=== PATIENT | female | born 1960 | race Caucasian/White ===

== ENCOUNTER 2016-09-30 16:50 | Inpatient (IN) | payer OTHER ==
[2016-09-30] MEDS ORDERED: ATIVAN1 M2 PO (18:39)
[2016-09-30] MEDS ORDERED: DEXAMETHASONE2 M1 PO (18:40)
[2016-09-30] MEDS ORDERED: LEXAPRO10 M2 PO (18:49)
[2016-09-30] MEDS ORDERED: NEURONTIN600 M1 PO (18:51)
[2016-09-30] MEDS ORDERED: GLYCERIN1 EAC1 PR (18:52)
[2016-09-30] MEDS ORDERED: IBUPROFEN800 M1 PO (18:53)
[2016-09-30] MEDS ORDERED: METHADOSE10 MG/1 ML PO (18:54)
[2016-09-30] MEDS ORDERED: OMEPRAZOLE20 M3 PO (18:56)
[2016-09-30] MEDS ORDERED: NAMENDA10 M1 PO (18:56)
[2016-09-30] MEDS ORDERED: OXYCODONE PO (19:00)
[2016-09-30] MEDS ORDERED: SENEXON8.6 M1 PO (19:02)
[2016-09-30] MEDS ORDERED: VITAMIN B17 PO (19:04)
[2016-10-03] MEDS ORDERED: OXYCODONE HCL5 M1 PO ×2 (16:36→16:37)
[2016-10-03] MEDS ORDERED: ATIVAN0.5 M1 PO (16:39)
[2016-10-03] MEDS ORDERED: DILAUDID2 M1 IV (16:42)
[2016-10-03] MEDS ORDERED: HYDROMORPHONE IV (16:44)
== END 2016-10-03 17:10 | DRG 948 ==
LOC: 5WE 16:50
PROVIDERS: ADMIT Internal Medicine
DX: G89.3 Neoplasm related pain (acute) (chronic) (principal); C78.7 Secondary malignant neoplasm of liver and intrahepatic bile duct; C78.00 Secondary malignant neoplasm of unspecified lung; C79.31 Secondary malignant neoplasm of brain; M84.50XA Pathological fracture in neoplastic disease, unspecified site, initial encounter for fracture; C54.1 Malignant neoplasm of endometrium; F41.9 Anxiety disorder, unspecified
CPT/HCPCS: J1170; J7050